=== PATIENT | female | born 2000 | race Caucasian/White ===

== ENCOUNTER 2022-04-12 13:02 | Emergency (ER) | payer OTHER ==
[~2022-04-12] VITALS: Ht 162.5 cm; Wt 96.6 kg
[2022-04-12] MEDS ORDERED: Motrin,Rufen800 MG PO (15:37)
== END 2022-04-12 15:49 | disposition home or self-care (01) ==
LOC: ED 13:02
DX: S93.401A Sprain of unspecified ligament of right ankle, initial encounter (principal); X50.1XXA Overexertion from prolonged static or awkward postures, initial encounter; Y93.89 Activity, other specified; Y92.89 Other specified places as the place of occurrence of the external cause; Y99.8 Other external cause status